=== PATIENT | female | born 1995 | race African-American/Black ===

== ENCOUNTER 2024-12-14 10:31 | Emergency (ER) | payer MEDICAID, OTHER ==
[~2024-12-14] VITALS: Ht 170.2 cm; Wt 64.0 kg
[2024-12-14 10:51] VITALS: O2SAT 100
[2024-12-14] MEDS ORDERED: ACET-2708 MT (14:39)
[2024-12-14] MEDS ORDERED: PROP1DRO2 MT (14:41)
[2024-12-14] MEDS: ACETAMINOPHEN 500MG TABLET PO ONE (15:26)
[2024-12-14] MEDS: TETRACAINE 0.5% OPHTH DROPS 4ML RIGHTEYE ONE (15:43)
[2024-12-14] MEDS: FLUORESCEIN SODIUM 1MG/STRIP RIGHTEYE ONE (15:43)
[2024-12-14 15:55] VITALS: BP 129/69; PULSE 66; RESP 16; TEMP 36.9; O2SAT 100
== END 2024-12-14 15:56 | disposition home or self-care (01) ==
LOC: ER 11:20
DX: H57.11 Ocular pain, right eye (principal); Z88.0 Allergy status to penicillin
CPT/HCPCS: 99283; 99284